=== PATIENT | female | born 1985 | race Caucasian/White ===

== ENCOUNTER 2016-05-22 18:27 | Emergency (ER) | payer OTHER ==
[2016-05-22 18:36] VITALS: BP 121/79
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
--- NOTE | 2016-05-22 19:12 | RAD ---
INDICATION: Neck injury COMPARISON: Cervical spine January 12, 2016 TECHNIQUE: A single lateral view of the cervical spine with a collar in place is submitted FINDINGS: Bones: There are no acute bony findings. There are no significant osteoarthritic findings. Craniocervical junction: The odontoid and atlantodental interval are normal. Alignment: Normal Disc spaces: The disc spaces are well-maintained Soft tissues: The prevertebral soft tissues are normal. IMPRESSION: THE SINGLE LATERAL VIEW DEMONSTRATES NO ABNORMALITIES. SUGGEST COMPLETION OF THE SERIES.
--- NOTE | 2016-05-22 19:28 | RAD ---
INDICATION: Neck injury COMPARISON: Lateral cervical spine May 22, 2016; cervical spine January 12, 2016 TECHNIQUE: Routine five-view imaging was performed FINDINGS: Bones: There are no acute bony findings. There are no significant osteoarthritic findings. Craniocervical junction: The odontoid and atlantodental interval are normal. Alignment: Normal Disc spaces: The disc spaces are well-maintained Soft tissues: The prevertebral soft tissues are normal. IMPRESSION: NORMAL EXAMINATION.
== END 2016-05-22 19:40 | disposition home or self-care (01) ==
LOC: UCEAST 18:27
DX: S16.1XXA Strain of muscle, fascia and tendon at neck level, initial encounter (principal); S39.012A Strain of muscle, fascia and tendon of lower back, initial encounter; V43.52XA Car driver injured in collision with other type car in traffic accident, initial encounter; Y93.89 Activity, other specified; Y92.410 Unspecified street and highway as the place of occurrence of the external cause; Z88.1 Allergy status to other antibiotic agents; F17.210 Nicotine dependence, cigarettes, uncomplicated
CPT/HCPCS: 72020; 72050; 99213; G0463

== ENCOUNTER 2016-12-31 09:55 | Emergency (ER) | payer OTHER ==
--- NOTE | 2016-12-31 13:05 | UC ---
Back Pain HPI - HPI Summary HPI Summary: Patient reports she suffers from chronic back pain secondary to scoliosis. She states she got up from a nap and had sudden severe thoracic back pain, to the left of midline. the pain is constant, worse with movement and only slightly improves when at rest. She denies any incontinence of bowel, bladder or saddle anesthesia. She states that this pain is similar to her pervious episodes of back pain. - History of Current Complaint Chief Complaint: UCBackPain Stated Complaint: BACK PAIN Time Seen by Provider: 12/31/16 12:47 Hx Obtained From: Patient Hx Last Menstrual Period: 12/26/16 ?: No Onset/Duration: Sudden Onset Timing: Constant Severity Initially: Severe Severity Currently: Severe Back Pain: Is Discrete @ Character: Spasmodic, Stiffness Aggravating Factor(s): Movement, Lifting, Bending Associated Signs And Symptoms: Positive: Negative Related History: Similar Episode Dx As - back pain - Risk Factors AAA Risk Factors: Negative TAD Risk Factors: Negative Cauda Equina Risk Factors: Negative Epidural Abscess Risk Factors: Negative - Allergies/Home Medications Allergies/Adverse Reactions: Allergies Allergy/AdvReac Type Severity Reaction Status Date / Time Azithromycin [From Zithromax] Allergy Hives Verified 12/31/16 12:03 iodine in shellfish Allergy Swelling Uncoded 12/31/16 12:03 Of Face,Lips,& Throat PMH/Surg Hx/FS Hx/Imm Hx Previously Healthy: No - chronic back pain - Surgical History Surgical History: Yes Surgery Procedure, Year, and Place: C section 2007;. tubal ligation 2010. LEEP - Family History Known Family History: Positive: None, Hypertension Family History: R & n/C - Social History Alcohol Use: Occasionally Substance Use Type: None Smoking Status (MU): Light Every Day Tobacco Smoker Type: Cigarettes Amount Used/How Often: 1/2 PPD Length of Time of Smoking/Using Tobacco: 14 year Have You Smoked in the Last Year: Yes - Immunization History Most Recent Influenza Vaccination: not recently Most Recent Tetanus Shot: up to date Review of Systems Musculoskeletal: Decreased ROM, Myalgia All Other Systems Reviewed And Are Negative: Yes Physical Exam Triage Information Reviewed: Yes Appearance: Pain Distress Vital Signs: Initial Vital Signs Temp 98 F 12/31/16 12:03 Pulse 89 12/31/16 12:03 Resp 17 12/31/16 12:03 Pulse Ox 100 12/31/16 12:03 Vital Signs Reviewed: Yes Eye Exam: Normal ENT Exam: Normal Neck exam: Normal Respiratory Exam: Normal Cardiovascular Exam: Normal Abdominal Exam: Normal Musculoskeletal: Positive: No Edema, Other: - back inspected; vertebra are in good aligment without step-offs or deformities. no areas of eccymosis, erythem, or edema. vertrbra nontender midline. palpable pain at thoracic left side of musculature. lower extremity strength testing equal 3/5. sensory exam without deficits. Back Pain Course/Dx - Course Course Of Treatment: Patient received tylenol, advil and 6 norco. recommend she follow up with pcp. - Differential Dx/Diagnosis Differential Diagnosis/HQI/PQRI: Strain, Sprain, Other - chronic back pain Provider Diagnoses: chronic back pain Discharge - Discharge Plan Condition: Stable Disposition: HOME Prescriptions: Acetaminophen TAB* [Tylenol TAB*] 650 mg PO Q4H PRN #20 tab PRN Reason: back pain HYDROcodone/ACETAMIN 5-325 MG* [[place] 5-325 TAB*] 1 tab PO Q8H PRN #6 tab MDD 3 PRN Reason: back pain Ibuprofen TAB* [Motrin TAB* 600 MG] 600 mg PO Q6H PRN #20 tab PRN Reason: back pain Referrals: Levar Ricci MD [Primary Care Provider] -
== END 2016-12-31 13:05 | disposition home or self-care (01) ==
LOC: UCEAST 09:55
DX: M54.6 Pain in thoracic spine (principal); G89.29 Other chronic pain; F17.210 Nicotine dependence, cigarettes, uncomplicated
CPT/HCPCS: 99212; G0463

== ENCOUNTER 2016-12-31 15:31 | Emergency (ER) | payer OTHER ==
[2016-12-31 16:40] VITALS: BP 117/64
[2016-12-31] MEDS ORDERED: Morphine INJ* 4 MG/ML 1 ML CARPUJECT IV ONE (18:10)
[2016-12-31] MEDS ORDERED: Ondansetron INJ* 2 MG/ML VIAL IV ONE (18:10)
[2016-12-31] MEDS ORDERED: Acetaminophen TAB* 325 MG PO ONE (18:10)
--- NOTE | 2016-12-31 18:29 | ED ---
Back Pain - HPI Summary HPI Summary: 31 female presents to ED with complaints of left sided back pain that began yesterday 12/30/16 and has worsened since. Patient does have chronic back pain and admits to this feeling similar. Patient states the pain has gotten to the point she is unable to move without excruciating pain. Was seen at PCP and [facility] who stated she should come here for further imaging. Given medication at however has not taken anything. States she has not tried any medication for the pain. Urinated and had bowel movement this morning and were normal. Has not gone since. Denies any known burning or pain with urination. Nausea is associated with the pain when it is at its highest. Has not vomited. No other complaints. States pain has began to radiate down into left flank over the past couple of hours and in to left glute. She denies numbness tingling. Movement, palpation and changing positions makes the pain worse. Nothing makes pain better. Denies saddle anesthesia, weakness of LE and bladder/bowel incontinence. Moving lower extremities against resistance does cause her pain. No other complaints at this time. No other PMHx. No known trauma or injury. - History of Current Complaint Chief Complaint: [place] Stated Complaint: BACK PAIN-SENT FROM [employer] Time Seen by Provider: 12/31/16 17:53 Hx Obtained From: Patient Hx Last Menstrual Period: 12/26/16 Onset/Duration: Sudden Onset, Lasting Days, Still Present, Worse Since Onset/Duration: Started Days Ago - yesterday, Still Present, Worse Since Timing: Constant Back Pain Location: Is Discrete @ - left mid back Severity Initially: Moderate Severity Currently: Severe Pain Intensity: 10 Pain Scale Used: 0-10 Numeric Character: Sharp, Aching, Throbbing Aggravating Symptom(s): Movement Alleviating Symptom(s): Rest Associated Signs And Symptoms: Positive: Negative, Flank Pain. Negative: Swelling, Redness, Bruising, Weakness, Numbness, Abdominal Pain, Bladder Incontinence, Bowel Incontinence, Pain with Weight Bearing - Risk Factors AAA Risk Factors: Negative TAD Risk Factors: Negative Cauda Equina Risk Factors: Negative Epidural Abscess Risk Factors: Negative - Allergies/Home Medications Allergies/Adverse Reactions: Allergies Allergy/AdvReac Type Severity Reaction Status Date / Time Azithromycin [From Zithromax] Allergy Hives Verified 12/31/16 12:03 Ketorolac Tromethamine Allergy See Comment Verified 12/31/16 16:41 [From Toradol] iodine in shellfish Allergy Swelling Uncoded 12/31/16 12:03 Of Face,Lips,& Throat PMH/Surg Hx/FS Hx/Imm Hx Endocrine/Hematology History: Denies: Hx Diabetes, Hx Thyroid Disease Cardiovascular History: Denies: Hx Hypertension Respiratory History: Reports: Hx Asthma - childhood asthma Denies: Hx Chronic Obstructive Pulmonary Disease (COPD) GI History: Denies: Hx Ulcer - Surgical History Surgery Procedure, Year, and Place: C section 2007;. tubal ligation 2010. LEEP - Immunization History Immunizations Up to Date: Yes Infectious Disease History: No Infectious Disease History: Denies: Hx Clostridium Difficile, Hx Hepatitis, Hx Human Immunodeficiency Virus (HIV), Hx of Known/Suspected MRSA, Hx Shingles, Hx Tuberculosis, Hx Known/ Suspected VRE, Hx Known/Suspected VRSA, History Other Infectious Disease, Traveled Outside the [place] in Last 30 Days - Family History Known Family History: Positive: None, Hypertension Family History: R & n/C - Social History Alcohol Use: Occasionally Hx Substance Use: No Substance Use Type: Reports: None Hx Tobacco Use: Yes Smoking Status (MU): Light Every Day Tobacco Smoker Type: Cigarettes Amount Used/How Often: 1/2 PPD Length of Time of Smoking/Using Tobacco: 14 year Have You Smoked in the Last Year: Yes Review of Systems Constitutional: Negative Cardiovascular: Negative Respiratory: Negative Gastrointestinal: Negative Positive: Arthralgia, Myalgia, Decreased ROM - back Skin: Negative Neurological: Negative All Other Systems Reviewed And Are Negative: Yes Physical Exam Triage Information Reviewed: Yes Vital Signs On Initial Exam: Initial Vitals Temp Pulse Resp BP Pulse Ox 97.3 F 67 16 117/64 99 12/31/16 16:33 12/31/16 16:33 12/31/16 16:33 12/31/16 16:33 12/31/16 16:33 Vital Signs Reviewed: Yes Appearance: Positive: Well-Appearing, Pain Distress - moderate to severe Skin: Positive: Warm, Skin Color Reflects Adequate Perfusion, Dry. Negative: Cold, Numb, Tender, Weeping Skin/Lesions, Mass @, Erythema @ Head/Face: Positive: Normal Head/Face Inspection Eyes: Positive: Conjunctiva Clear ENT: Positive: Hearing grossly normal Neck: Positive: Supple, Nontender Respiratory/Lung Sounds: Positive: Clear to Auscultation, Breath Sounds Present. Negative: Rales, Rhonchi, Wheezes Cardiovascular: Positive: Normal, RRR, Pulses are Symmetrical in both Upper and Lower Extremities - 2+ pedal bl. Negative: Murmur, Rub Abdomen Description: Positive: Nontender, No Organomegaly, Soft, CVA Tenderness (R), CVA Tenderness (L). Negative: Bruit, Distended, Guarding, Pulsatile Mass Bowel Sounds: Positive: Present Musculoskeletal: Positive: Limited @ - with movement of back and with moving LE , Pain @ - T9-L3 area on palpation of. Negative: Interruption @ Neurological: Positive: Normal, Sensory/Motor Intact, Alert, Oriented to Person Place, Time, CN Intact II-III, Reflexes Intact, NV Bundle Intact Distally, Normal Gait - walking slowly, holding back Psychiatric: Positive: Affect/Mood Appropriate - [place] Coma Scale Best Eye Response: 4 - Spontaneous Best Motor Response: 6 - Obeys Commands Best Verbal Response: 5 - Oriented Coma Scale Total: 15 Diagnostics - Vital Signs Vital Signs Temp Pulse Resp BP Pulse Ox 12/31/16 16:33 97.3 F 67 16 117/64 99 - Laboratory Result Diagrams: 12/31/16 18:27 12/31/16 18:27 Lab Statement: Any lab studies that have been ordered have been reviewed, and results considered in the medical decision making process. - CT abd/pelvis including thoracic/lumbar spine CT Interpretation: No Acute Changes CT Interpretation Completed By: Radiologist Re-Evaluation - Re-Evaluation First Eval Re-Evaluation Time: 20:23 Change: Improved - had some improvement however pain is still present, updated on lab and imaging results. aware of plan of action and is in agreement and understands. Second Eval Re-Evaluation Time: 20:42 Change: Improved Comment: feels better, ready to be d/c Back Pain Course/Dx - Course Course Of Treatment: obtained labs and urinalysis. given pain medication. CT abd /pelvis obtained including thoracic and lumbar spine. Unremarkable. No sign of renal calculi. No significant findings on labs, imaging or urine. No fever/ chills. Normal vitals. PE findings significant for MSK pain of mid left back. No other emergent etiology of concern at this time. Patient had relief with pain medication. Appears to be suffering a possible radiculopathy. Follow up neurosurg, further imaging. Given pain management. Aware of worsening signs and symptoms to watch out for. [employer]Stop Reference #: [id number] - Diagnoses Differential Diagnosis/HQI/PQRI: Positive: Arthritis, Herniated Disc, Renal Colic, Strain, Sprain Provider Diagnoses: Back pain Discharge - Discharge Plan Condition: Stable Disposition: HOME Prescriptions: Cyclobenzaprine TAB* [Flexeril 10 MG TAB*] 10 mg PO BEDTIME PRN #7 tab PRN Reason: Spasms HYDROcodone/ACETAMIN 5-325 MG* [[place] 5-325 TAB*] 1 tab PO Q6H PRN #10 tab MDD 3 PRN Reason: Pain Patient Education Materials: Back Pain (ED) Referrals: Thomas Chaidez MD [Medical Doctor] - Levar Ricci MD [Primary Care Provider] - Additional Instructions: Take prescribed medications as directed to help with pain and inflammation, as needed. Take with food. Take flexeril, muscle relaxer at bedtime. Do not drive while taking these medications. Apply warm compresses to soothe pain and loosen muscles. Ice at bedtime. Rest. Drink plenty of fluids. Follow up and make an appointment with back specialist and PCP for further evaluation and imaging. If you develop worsening signs and symptoms as we discussed, (fever, abdominal pain, vomiting, numbness/tingling, bladder/bowel incontinence or weakness) please return.
[2016-12-31 18:39] LABS: Hematocrit 41 % (35-47); Hemoglobin 13.7 g/dl (12.0-16.0); Mean Corpuscular HGB Conc 34 g/dl (31-36); Mean Corpuscular Hemoglobin 31 pg (27-31); Mean Corpuscular Volume 92 fL (80-97); Mean Platelet Volume 10 um3 (7.4-10.4); Red Cell Distribution Width 13 % (10.5-15); White Blood Count 10.3 10^3/ul (3.5-10.8)
[2016-12-31 18:55] LABS: ALT 16 U/L (7-52); AST 15 U/L (13-39); Albumin 4.1 g/dL (3.2-5.2); Alkaline Phosphatase 55 U/L (34-104); Anion Gap 6 mmol/L (2-11); BUN/Creatinine Ratio 11.9 (8-20); Blood Urea Nitrogen 8 mg/dL (6-24); C Reactive Protein < 1.00 mg/L (< 5.00); CO2 Carbon Dioxide 26 mmol/L (22-32); Calcium 9.4 mg/dL (8.6-10.3); Chloride 105 mmol/L (101-111); EGFR African American 132.9 (>60); EGFR Non-African American 103.3 (>60); Globulin 3.3 g/dL (2-4); Glucose 84 mg/dL (70-100); Potassium 3.6 mmol/L (3.5-5.0); Sodium 137 mmol/L (133-145); Total Protein 7.4 g/dL (6.4-8.9)
[2016-12-31 19:30] LABS: Urine Bilirubin Negative (Negative); Urine Glucose Negative (Negative); Urine Nitrite Negative (Negative)
--- NOTE | 2016-12-31 19:36 | RAD ---
INDICATION: Left flank and back pain. COMPARISON: There are no prior studies available for comparison. TECHNIQUE: A CT scan of the abdomen and pelvis was performed without intravenous or oral contrast. Contiguous axial sections were obtained from the lung bases through the symphysis pubis. Images were reconstructed in the coronal and sagittal planes. FINDINGS: The lung bases are clear. No pleural effusion is present. The liver and spleen are within normal limits in size without significant focal abnormality on this noncontrast study. No calcified gallstones are seen. The pancreas appears to be within normal limits in size. The adrenal glands and kidneys are normal in size. No renal calculi or hydronephrosis is seen. No ureteral or bladder calculi are seen. The aorta is normal in caliber without significant calcific plaque. Evaluation of the retroperitoneum is limited due to paucity of abdominal fat and lack of contrast although no grossly enlarged retroperitoneal lymph nodes are seen. The stomach, small and large bowel appear nondistended. The appendix is within normal limits. There is no evidence for diverticulitis or colitis. The uterus is retroverted and normal in size. No free intraperitoneal air or fluid is seen. No significant focal osseous abnormality or fracture is seen. The intervertebral disc spaces appear maintained. There is no gross evidence for spinal canal narrowing. IMPRESSION: NO EVIDENCE FOR ACUTE FINDING OR CAUSE FOR THE PATIENT'S ABDOMINAL PAIN IS SEEN.
[2016-12-31] MEDS ORDERED: Morphine INJ* 2 MG/ML 1 ML CARPUJECT IV ONE (19:38)
[2016-12-31] MEDS ORDERED: Orphenadrine Citrate IV* 30 MG/ML 2 ML VIAL IV ONE (19:39)
[2016-12-31] MEDS ORDERED: oxyCODONE/Acetamin 5/325 MG* TAB PO ONE (20:27)
[2016-12-31] MEDS ORDERED: Cyclobenzaprine TAB* 10 MG PO ONE (20:27)
== END 2016-12-31 21:06 | disposition home or self-care (01) ==
LOC: ED 15:31
DX: M54.5 Low back pain (principal); F17.210 Nicotine dependence, cigarettes, uncomplicated
CPT/HCPCS: 36415; 74176; 80053; 81003; 84702; 85025; 86140; 96374; 96375; 99284; A9270-GY; J2270; J2360; J2405

== ENCOUNTER → 2017-12-12 11:11 | Emergency (ER) | payer OTHER ==
[~2017-12-12 11:11] MED LIST: Magnesium Oxide TAB* 400 MG PO ONE; Morphine INJ* 2 MG/ML 1 ML SYRINGE (TWO MG - NEW SYRINGE VERSION) IV ONE; NS 0.9% 1000 ML* 1,000 ML IV ONE; Ondansetron INJ* 2 MG/ML VIAL IV ONE; Potassium Chlor TAB* 20 MEQ TAB.ER PO ONE
[2017-12-12 12:41] LABS: ABS Basophils 0.1 10^3/ul (0-0.2); ABS Eosinophils 0.1 10^3/ul (0-0.6); ABS Monocytes 0.4 10^3/ul (0-0.8); ABS Nucleated RBC 0 10^3/ul; Eosinophil % 1.7 % (0-6); Hematocrit 39 % (35-47); Hemoglobin 13.3 g/dl (12.0-16.0); Lymphocyte % 36.3 % (25-47); Mean Corpuscular HGB Conc 34 g/dl (31-36); Mean Corpuscular Hemoglobin 32 pg (27-31); Mean Corpuscular Volume 93 fL (80-97); Mean Platelet Volume 9.7 um3 (7.4-10.4); Nucleated Red Blood Cells % 0.1; Platelet Count 173 10^3/ul (150-450); Red Blood Count 4.21 10^6/ul (4.00-5.40); Red Cell Distribution Width 13 % (10.5-15); White Blood Count 5.5 10^3/ul (3.5-10.8)
[2017-12-12 12:56] LABS: EGFR Non-African American 116.6 (>60)
[2017-12-12 13:45] LABS: Urine Appearance Clear; Urine Blood Negative (Negative); Urine Color Yellow; Urine Ketones Trace (Negative); Urine Protein Negative (Negative); Urine Specific Gravity 1.017 (1.010-1.030); Urine Urobilinogen Negative (Negative)
[2017-12-12 14:06] VITALS: BP 113/74
--- NOTE | 2017-12-12 14:29 | ED ---
Complex/Multi-Sys Presentation - HPI Summary HPI Summary: Patient is a 32-year-old female who presents emergency department for numerous complaints. All of her symptoms started yesterday. Patient complains of vomiting, diarrhea, bilateral flank pain, tingling to bilateral hands and muscle cramps. She denies chest pain, shortness of breath, cough, urinary symptoms. Symptoms are moderate in severity. Denies significant past medical history. No current modifying factors. Denies sick contacts or recent travel. - History Of Current Complaint Chief Complaint: EDFlankPain Time Seen by Provider: 12/12/17 11:29 Hx Obtained From: Patient - Allergies/Home Medications Allergies/Adverse Reactions: Allergies Allergy/AdvReac Type Severity Reaction Status Date / Time MS Azithromycin Allergy Hives Verified 01/15/17 15:52 [From Zithromax] MS Ketorolac Tromethamine Allergy See Comment Verified 01/15/17 15:52 [From Toradol] iodine in shellfish Allergy Swelling Uncoded 01/15/17 15:52 Of Face,Lips,& Throat PMH/Surg Hx/FS Hx/Imm Hx Previously Healthy: Yes Endocrine/Hematology History: Denies: Hx Diabetes, Hx Thyroid Disease Cardiovascular History: Denies: Hx Hypertension, Hx Pacemaker/ICD Respiratory History: Reports: Hx Asthma - childhood asthma Denies: Hx Chronic Obstructive Pulmonary Disease (COPD) GI History: Denies: Hx Ulcer Sensory History: Denies: Hx Hearing Aid Psychiatric History: Denies: Hx Panic Disorder - Surgical History Surgery Procedure, Year, and Place: C section 2007;. tubal ligation 2010. LEEP - Immunization History Date of Tetanus Vaccine: "up to date" Infectious Disease History: No Infectious Disease History: Denies: Hx Clostridium Difficile, Hx Hepatitis, Hx Human Immunodeficiency Virus (HIV), Hx of Known/Suspected MRSA, Hx Shingles, Hx Tuberculosis, Hx Known/ Suspected VRE, Hx Known/Suspected VRSA, History Other Infectious Disease, Traveled Outside the [place] in Last 30 Days - Family History Known Family History: Positive: None, Hypertension Family History: R & n/C - Social History Occupation: Employed Full-time Lives: With Family Alcohol Use: Occasionally Hx Substance Use: No Substance Use Type: Reports: Marijuana Hx Tobacco Use: Yes Smoking Status (MU): Heavy Every Day Tobacco Smoker Type: Cigarettes Amount Used/How Often: 1/2 PPD Length of Time of Smoking/Using Tobacco: 14 year Have You Smoked in the Last Year: Yes Review of Systems Constitutional: Negative Negative: Fever, Chills Eyes: Negative ENT: Negative Cardiovascular: Negative Negative: Chest Pain Respiratory: Negative Negative: Shortness Of Breath, Cough Positive: Vomiting, Diarrhea, Nausea. Negative: Abdominal Pain Positive: flank pain. Negative: dysuria, discharge, hematuria Positive: Other - tingling to bilateral hands, diffuse muscle cramps. Neurological: Negative Positive: Paresthesia - tingling to hands.. Negative: Headache, Weakness, Numbness, Syncope, Slurred Speech All Other Systems Reviewed And Are Negative: Yes Physical Exam Triage Information Reviewed: Yes Vital Signs On Initial Exam: Initial Vitals Temp Pulse Resp BP Pulse Ox 98.5 F 74 18 115/80 95 12/12/17 11:18 12/12/17 11:18 12/12/17 11:18 12/12/17 11:18 12/12/17 11:18 Vital Signs Reviewed: Yes Appearance: Positive: Well-Appearing - Pt. Sitting up in bed, appears uncomfortable but nontoxic. Skin: Positive: Warm, Dry Head/Face: Positive: Normal Head/Face Inspection Eyes: Positive: Normal, EOMI Neck: Positive: Supple Respiratory/Lung Sounds: Positive: Clear to Auscultation, Breath Sounds Present Cardiovascular: Positive: Normal, RRR Abdomen Description: Positive: Nontender, Soft, CVA Tenderness (R), CVA Tenderness (L) Musculoskeletal: Positive: Normal, Strength/ROM Intact - 5/5 strength in bilateral UE and LEs Neurological: Positive: Normal, CN Intact II-III Psychiatric: Positive: Affect/Mood Appropriate Diagnostics - Vital Signs Vital Signs Temp Pulse Resp BP Pulse Ox 12/12/17 14:04 98.1 F 62 16 113/74 98 12/12/17 13:27 70 16 129/75 98 12/12/17 12:11 20 12/12/17 11:18 98.5 F 74 18 115/80 95 - Laboratory Lab Results: Lab Results 12/12/17 12/12/17 12/12/17 Range/Units 12:20 12:20 13:25 WBC 5.5 (3.5-10.8) 10^3/ul RBC 4.21 (4.00-5.40) 10^6/ul Hgb 13.3 (12.0-16.0) g/dl Hct 39 (35-47) % MCV 93 (80-97) fL MCH 32 H (27-31) pg MCHC 34 (31-36) g/dl RDW 13 (10.5-15) % Plt Count 173 (150-450) 10^3/ul MPV 9.7 (7.4-10.4) um3 Neut % (Auto) 53.9 (38-83) % Lymph % (Auto) 36.3 (25-47) % [place] % (Auto) 7.0 (0-7) % Eos % (Auto) 1.7 (0-6) % Baso % (Auto) 1.1 (0-2) % Absolute Neuts (auto) 3.0 (1.5-7.7) 10^3/ul Absolute Lymphs (auto) 2.0 (1.0-4.8) 10^3/ul Absolute Monos (auto) 0.4 (0-0.8) 10^3/ul Absolute Eos (auto) 0.1 (0-0.6) 10^3/ul Absolute Basos (auto) 0.1 (0-0.2) 10^3/ul Absolute Nucleated RBC 0 10^3/ul Nucleated RBC % 0.1 Sodium 141 (135-145) mmol/L Potassium 3.0 L (3.5-5.0) mmol/L Chloride 110 (101-111) mmol/L Carbon Dioxide 25 (22-32) mmol/L Anion Gap 6 (2-11) mmol/L BUN 8 (6-24) mg/dL Creatinine 0.60 (0.51-0.95) mg/dL Est GFR ( Amer) 141.1 (>60) Est GFR (Non-Af Amer) 116.6 (>60) BUN/Creatinine Ratio 13.3 (8-20) Glucose 100 (70-100) mg/dL Calcium 9.0 (8.6-10.3) mg/dL Magnesium 1.7 L (1.9-2.7) mg/dL Total Bilirubin 0.30 (0.2-1.0) mg/dL AST 17 (13-39) U/L ALT 16 (7-52) U/L Alkaline Phosphatase 57 (34-104) U/L Total Protein 6.5 (6.4-8.9) g/dL Albumin 3.9 (3.2-5.2) g/dL Globulin 2.6 (2-4) g/dL Albumin/Globulin Ratio 1.5 (1-3) Beta HCG, Quant < 0.60 mIU/mL Urine Color Yellow Urine Appearance Clear Urine pH 8.0 (5-9) Ur Specific [place] 1.017 (1.010-1.030) Urine Protein Negative (Negative) Urine Ketones Trace A (Negative) Urine Blood Negative (Negative) Urine Nitrate Negative (Negative) Urine Bilirubin Negative (Negative) Urine Urobilinogen Negative (Negative) Ur Leukocyte Esterase Negative (Negative) Urine Glucose Negative (Negative) Result Diagrams: 12/12/17 12:20 12/12/17 12:20 Lab Statement: Any lab studies that have been ordered have been reviewed, and results considered in the medical decision making process. Complex Multi-Symp Course/Dx Course Of Treatment: Patient presenting to the ER with the above complaints. She is afebrile with stable vital signs. Patient was given IV fluids, Zofran and it does morphine. Basic blood work was obtained. She has benign abdominal exam. CBC is unremarkable. CMP shows mildly low potassium and magnesium of 3.0 and 1.7. These were repleted orally and patient tolerated well. On reexamination patient is sitting up and states she is feeling much better after fluids and medication. Suspect viral gastroenteritis zoning and mild dehydration and electrolyte abnormality. Urinalysis shows small ketones but is negative for infection. Rx for Zofran sent patient's pharmacy. Advised patient to increase fluids. Did an [id number] a daily vitamin. Close follow-up with PCP for recheck blood work. Patient will return to the ER symptoms change or worsen. Patient understands and agrees with plan. - Diagnoses Provider Diagnoses: Dehydration, Viral gastroenteritis, Hypomagnesemia, Hypokalemia Discharge - Sign-Out/Discharge Documenting (check all that apply): Patient Departure - Discharge Plan Condition: Good Disposition: HOME Prescriptions: Ondansetron TAB* [Zofran 4 MG Tab*] 4 mg PO Q6H PRN #12 tab PRN Reason: Nausea Patient Education Materials: Dehydration (ED), Hypokalemia (ED), Gastroenteritis (ED), Hypomagnesemia (ED) Forms: *Work Release Referrals: Levar Ricci MD [Primary Care Provider] - Additional Instructions: Schedule a follow up appointment with PCP for repeat blood work Increase fluids Zofran as directed Take an over the counter daily vitamin Tylenol or Motrin for pain as directed Return to ER if symptoms change or worsen - Billing Disposition and Condition Condition: GOOD Disposition: Home
== END | disposition home or self-care (01) ==
LOC: ED 11:11
DX: A08.4 Viral intestinal infection, unspecified (principal); E83.42 Hypomagnesemia; E87.6 Hypokalemia; E86.0 Dehydration; Z88.1 Allergy status to other antibiotic agents; Z88.5 Allergy status to narcotic agent; F17.210 Nicotine dependence, cigarettes, uncomplicated
CPT/HCPCS: 36415; 80053; 81003; 83735; 84702; 85025; 96374; 96375; 99283; A9270-GY; J2270; J2405